=== PATIENT | female | born 1975 | race Caucasian/White ===

== ENCOUNTER 2016-07-11 15:33 | Emergency (ER) | payer MEDICAID, OTHER ==
[2016-07-11 15:53] VITALS: BP 94/62; PULSE 76; RESP 16; TEMP 98.2; O2SAT 96
--- NOTE | 2016-07-11 16:27 | UCPHY ---
H & P Time Seen by Provider: 07/11/16 16:07 Patient Type: New HPI/ROS: This patient complains of right foot pain for 1 month. She reports also having swelling to the dorsum of the right proximal forefoot a lump for at least 2 months. She stands on her feet a lot at work in [employer] and reports that the foot pain increases while standing. She ranks the peak intensity is 8/10 and is currently 7/10 after 400 mg of ibuprofen 5 hours prior to arrival. URI symptoms consisting of coryza, subjective fevers and occasional cough for the past few days. ROS: Constitutional symptoms as per HPI as well as some myalgias. HEENT: No significant throat pain or ear pain. Pulmonary: No complaints except for occasional cough cardiovascular: No complaints GI: No complaints: Skin: No rash no recent trauma. 7 point ROS is otherwise negative Past Medical/Surgical History: Otherwise healthy Social History: No recent significant change in her level of exercise Smoking Status: Never smoked Physical Exam: Physical Exam Vital signs are normal. General: No acute distress HEENT: Nose: Clear discharge oropharynx: No significant erythema or exudates. No dysphonia. Ears: External canals TMs clear bilaterally. Eyes: Pupils equal and react to light. Extraocular motions are intact. Lungs: Clear to auscultation bilaterally with no rales, rhonchi or wheeze. No respiratory distress. Cardiac: Regular rate and rhythm with no murmur gallop rub. Brisk capillary refill is intact throughout. Pulses are 2+ and symmetric in the affected extremity. Skin: No rash or pallor. Extremities: Atraumatic normal except for right foot Right foot: Patient has a 2 x 2 cm area of swelling to the proximal forefoot overlying the 2nd 3rd metacarpal region dorsally. There is no associated erythema or warmth to touch. No fluctuance. No skin findings. The area is nonmobile. She has mild tenderness here. She reports minimal ankle tenderness bilaterally with no associated swelling. She has no 5th metatarsal swelling or tenderness. Neuro: Alert and oriented x3 with no sensorimotor deficits. Initial differential diagnosis: URI, influenza, DJD to the Lisfranc joint, doubt tenosynovitis. 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 Otherwise normal. 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 I counseled regarding this. She is placed in a postop shoe. She will follow up with Podiatry for any ongoing symptoms despite the plan. The patient's rapid flu is negative. I counseled patient regardingseled regarding her foot - Data Points Laboratory Results: 07/11/16 16:48 Influenza Typ A,B (DFA) NEGATIVE FOR FLU (NEGATIVE) Departure - Departure Disposition: Home, Routine, Self-Care Clinical Impression: Foot pain, right Upper respiratory tract infection Qualifiers: URI type: unspecified viral URI Qualifier Code: (J06.9) Acute upper respiratory infection, unspecified Condition: Good Instructions: Arthralgia (ED), Upper Respiratory Infection (ED) Additional Instructions: Diagnosis: Foot pain 2. Viral URI Plan: Postop shoe when your up and about until symptoms improve Ice 20 minutes at a time to 3 times a day for the next few days Ibuprofen 400-600 mg per 6 hours as needed for pain Tylenol in addition as needed. Call the provider scribe arrange follow-up appointment for any symptoms last beyond the next week despite the treatment plan. Referrals: NONE *PRIMARY CARE P,. [Primary Care Provider] - As per Instructions Wes Pang DPM [Doctor of Podiatric Medicine] - As per Instructions Stand Alone Forms: Work Excuse - PQRS PQRS Measurement: NA
--- NOTE | 2016-07-11 19:34 | DX ---
Right Foot, Three Views Indication: Swelling and pain. No trauma.. Technique: AP, oblique, and lateral views. Comparison: None. Findings: The bones are anatomically aligned. No fracture, bone lesion, or periostitis. Joint spaces are well preserved. Minimal degenerative arthropathy is present at the talonavicular and calcaneocubo id joints. Small plantar spur. Impression: Negative. No explanation for forefoot pain.
== END 2016-07-11 17:32 | disposition home or self-care (01) ==
LOC: CED 15:33
DX: M79.671 Pain in right foot (principal); J06.9 Acute upper respiratory infection, unspecified
CPT/HCPCS: 73630-PO; 87400-PO; 99203-PO; G0463-PO